=== PATIENT | male | born 1985 | race African-American/Black ===

== ENCOUNTER 2018-07-31 21:03 | Emergency (ER) | payer SELFPAY ==
[~2018-07-31] VITALS: Ht 195.6 cm; Wt 83.9 kg
[2018-07-31 21:11] VITALS: BP 121/84
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
[2018-07-31] MEDS ORDERED: DiphenhydrAMINE 50mg/ml Inj IVP ONE (21:15)
[2018-07-31] MEDS ORDERED: LORazepam Inj 2mg/ml 1ml IV ONE (21:15)
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
--- NOTE | 2018-07-31 22:10 | NUR ---
ED Nurse Note: Blood sample collected and sent to Lab. Meds given as ordered.
--- NOTE | 2018-07-31 22:35 | NUR ---
ED Nurse Note: Pt was so confused and urinated on the floor on the room, still naked on standing and refused to put on any clothes at this time.
[2018-07-31 22:40] LABS: ANION GAP 9 mmol/L (5-15); BLOOD UREA NITROGEN 29 mg/dL (7-18); CALCIUM 9.2 MG/DL (8.5-10.1); CARBON DIOXIDE 25 MMOL/L (21-32); CHLORIDE 103 MMOL/L (98-107); CREATININE 1.4 MG/DL (0.55-1.30); POTASSIUM 4.1 MMOL/L (3.5-5.1); SODIUM 137 MMOL/L (136-145)
[2018-07-31 22:44] LABS: ALANINE AMINOTRANSFERASE 84 U/L (12-78); ALBUMIN 4.1 G/DL (3.4-5.0); ALBUMIN/GLOBULIN RATIO 1.1 (1.0-2.7); ALKALINE PHOSPHATASE 83 U/L (46-116); ASPARTATE AMINO TRANSFERASE 142 U/L (15-37); BILIRUBIN,TOTAL 0.8 MG/DL (0.2-1.0); EOSINOPHILS % (AUTO) 0.5 % (0.0-3.0); HEMATOCRIT 40.1 % (42.0-52.0); HEMOGLOBIN 12.9 G/DL (14.2-18.0); LYMPHOCYTES % (AUTO) 22.7 % (20.0-45.0); MEAN CORPUSCULAR VOLUME 98 FL (80-99); MONOCYTES % (AUTO) 10.9 % (1.0-10.0); PLATELET COUNT 297 K/UL (150-450); RED BLOOD COUNT 4.11 M/UL (4.70-6.10); RED CELL DISTRIBUTION WIDTH 12.6 % (11.6-14.8); WHITE BLOOD COUNT 6.6 K/UL (4.8-10.8)
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
[2018-08-01 03:15] VITALS: BP 124/82
== END 2018-08-01 03:15 | disposition left against medical advice (07) ==
LOC: EDBD 21:03 → EMR 22:00
DX: F15.10 Other stimulant abuse, uncomplicated (principal)
CPT/HCPCS: 36415; 80053; 80307; 85025; 96361; 96374; 96375; 99284; G0480; J1200; 80329